=== PATIENT | male | born 1985 | race Caucasian/White ===

== ENCOUNTER 2018-11-09 07:43 | Day surgery (SDC) | payer OTHER ==
[~2018-11-09] VITALS: Ht 172.7 cm; Wt 68.9 kg
[2018-11-09 08:39] VITALS: Ht 172.7 cm; Wt 68.9 kg
[2018-11-09 08:59] VITALS: BP 122/70; PULSE 68; RESP 20
[2018-11-09] MEDS ORDERED: LIDOCAINE 4% SOLUTION 50 ML BTL ONE (09:48)
[2018-11-09] MEDS ORDERED: MIDAZOLAM 1 MG/ML 2 ML INJ ONE ×3 (10:45→10:46)
[2018-11-09] MEDS ORDERED: FENTAnyl 50 MCG/ML VIAL ONE ×2 (10:46)
[2018-11-09 10:58] VITALS: BP 106/60; PULSE 59; RESP 16
== END 2018-11-09 12:39 | disposition home or self-care (01) ==
LOC: GIL 07:43
PROVIDERS: ATTEND Internal Medicine Gastroenterology
DX: R19.5 Other fecal abnormalities (principal); K29.50 Unspecified chronic gastritis without bleeding; K64.4 Residual hemorrhoidal skin tags; K20.8 Other esophagitis
CPT/HCPCS: 43239; 45378; 88305; 88312; 88313; J2250; J3010; Z7610